=== PATIENT | female | born 1965 | race African-American/Black ===

== ENCOUNTER 2024-09-26 16:57 | Inpatient (IN) | payer OTHER ==
[2024-09-26 17:08] VITALS: BMI 53.9
[2024-09-26] MEDS ORDERED: ACETAMINOPHEN 325 MG TABLET (FP) ONE (18:03)
[2024-09-26] MEDS ORDERED: IBUPROFEN 400 MG TABLET (FP) PO ONE (18:03)
[2024-09-26] MEDS ORDERED: LIDOCAINE 5% TOPICAL PATCH ONE (18:03)
[2024-09-26 18:19] LABS: EPI CELLS >36 /uL (0-25.1); HYALINE CASTS 2 /uL (0-3.1); PH,URINE 5.5 (5.0-8.0); URINE APPEARANCE TURBID; URINE BACTERIA 2087 /uL (0-1359); URINE BILIRUBIN NEGATIVE (NEGATIVE); URINE COLOR YELLOW; URINE GLUCOSE (UA) NEGATIVE (NEGATIVE); URINE KETONE TRACE (NEGATIVE); URINE LEUK ESTERASE NEGATIVE (NEGATIVE); URINE NITRITE NEGATIVE (NEGATIVE); URINE PROTEIN 1+ (NEGATIVE); URINE WBC 55 /uL (0-25.8)
[2024-09-26] MEDS: ACETAMINOPHEN 325 MG TABLET (FP) PO ONE (18:21)
[2024-09-26] MEDS: LIDOCAINE 5% TOPICAL PATCH TP ONE (18:21)
[2024-09-26] MEDS: IBUPROFEN 400 MG TABLET (FP) PO ONE (18:22)
[2024-09-26 19:41] LABS: URINE RBC 30.5 /uL (0-23.9)
[2024-09-26] MEDS: LIDOCAINE PATCH REMOVAL MC SCH (22:01)
[2024-09-26] MEDS ORDERED: ACETAMINOPHEN 1000 MG/100 ML BAG IVPB PRN (22:24)
[2024-09-27 00:32] VITALS: RESP 18
[2024-09-27 02:45] LABS: HEMATOCRIT 37.2 % (34.1-44.9); HEMOGLOBIN 11.7 g/dL (11.2-15.7); MCHC 31.5 g/dl (32.2-35.5); MEAN CELL VOLUME 90.7 fl (79.4-94.8); MEAN PLT VOLUME 8.9 fl (9.4-12.3); PLATELET COUNT 224 x10^3/uL (182-369); RDW 15.3 % (12.3-16.6)
[2024-09-27 09:04] LABS: CALCIUM 8.9 mg/dL (8.5-10.1)
[2024-09-27 09:05] LABS: BLOOD UREA NITROGEN 17.7 mg/dL (7-18)
[2024-09-27 09:06] LABS: INR 1.21 (0.83-1.09); PROTHROMBIN TIME (PATIENT) 13.3 SEC (9.7-13.0)
[2024-09-27 09:07] LABS: ALBUMIN 2.7 g/dl (3.4-5.0)
[2024-09-27 09:08] LABS: ACTIVATED PTT 30.9 SECONDS (25.2-36.5)
[2024-09-27 09:10] LABS: BILIRUBIN,TOTAL 0.3 mg/dL (0.2-1); CREATININE 0.9 mg/dL (0.55-1.3); TOT PROT 6.5 g/dl (6.4-8.2)
[2024-09-27] MEDS: LISINOPRIL 20 MG TABLET PO SCH (10:13)
[2024-09-27] MEDS: FUROSEMIDE 40 MG TABLET (FP) PO SCH (10:13)
[2024-09-27] MEDS: morphine SULFATE 4 MG/ML VIAL IVPUSH PRN (16:32)
[2024-09-27 17:06] VITALS: TEMP 99
[2024-09-27 20:13] VITALS: BP 131/75; PULSE 75
[2024-09-27] MEDS ORDERED: ROSUVASTATIN CA 5 MG TABLET PO SCH (22:00)
[2024-09-28] MEDS ORDERED: RIVAROXABAN 10 MG TABLET PO SCH (10:00)
== END 2024-09-27 20:20 | disposition short-term general hospital (02) | DRG 392 ==
LOC: JER 16:57 → JERBED 19:42 → J5S 23:01
PROVIDERS: ADMIT Hospitalist
DX: R19.09 Other intra-abdominal and pelvic swelling, mass and lump (principal); N85.00 Endometrial hyperplasia, unspecified; I10 Essential (primary) hypertension; E78.5 Hyperlipidemia, unspecified; Z86.711 Personal history of pulmonary embolism; R10.2 Pelvic and perineal pain
CPT/HCPCS: 36415; 76830-TC; 80053; 81003; 82105; 82378; 85027; 85610; 85730; 86304; 86850; 86900; 86901; 87086; 87635; 99285-25